=== PATIENT | male | born 1940 | race Caucasian/White ===

== ENCOUNTER 2017-07-26 06:14 | Emergency (ER) | payer MEDICARE ==
--- NOTE | 2017-07-26 06:36 | Emergency Department Record ---
History of Present Illness - General Chief complaint: Nosebleed/epistaxis Stated complaint: EPISTAXIS LEFT NARE Time Seen by Provider: 07/26/17 06:31 Source: Patient Mode of Arrival: Wheelchair Limitations: No limitations - History of Present Illness Initial comments: 77 yo male presents to ED for evaluation of intermittent nose bleeds from the right nare for the past 3 morning, has been able to get the bleeding to stop at home each morning. Patient reports that he takes Coumadin, Plavix, and ASA for his heart. Patient denies injury or trauma to the nose, and denies recent surgery to the area. complaint: Epistaxis Onset/Timin -: Minutes(s) Location: Nose Severity: Moderate Consistency: Intermittent Improves with: Pressure Worsens with: None Context-Epistaxis: Aspirin use, Warfarin use - Related Data Home Medications Medication Instructions Recorded Confirmed Last Taken Albuterol Sulfate [Proventil Hfa] 1 - 2 puff INH .EVERY 4-6 HOURS PRN 07/26/17 07/26/17 Unknown Aspirin 81 mg PO DAILY 07/26/17 07/26/17 Unknown Beclomethasone Dipropionate [Qvar 8.7 gm IH BID 07/26/17 07/26/17 Unknown 40Mcg/100 Actuat Inhaler] Cholecalciferol (Vitamin D3) 1,000 unit PO DAILY 07/26/17 07/26/17 Unknown [Vitamin D3] Hydrocortisone [Proctosol-Hc] 28.35 gm RC ASDIR 07/26/17 07/26/17 Unknown Ketoconazole 15 gm TP ASDIR 07/26/17 07/26/17 Unknown Loratadine [Claritin] 10 mg PO DAILY 07/26/17 07/26/17 Unknown Metoprolol Succinate 50 mg PO DAILY 07/26/17 07/26/17 Unknown Milk Thistle 100 mg PO DAILY 07/26/17 07/26/17 Unknown Omeprazole 20 mg PO DAILY 07/26/17 07/26/17 Unknown Ropinirole HCl [Requip] 0.25 mg PO QPM 07/26/17 07/26/17 Unknown Sertraline HCl [Zoloft] 50 mg PO QHS 07/26/17 07/26/17 Unknown Vitamin B Complex 1 each PO DAILY 07/26/17 07/26/17 Unknown Previous Rx's Medication Instructions Recorded Cephalexin [Keflex] 500 mg PO QID #28 cap 07/26/17 Allergies Allergy/AdvReac Type Severity Reaction Status Date / Time Sulfa (Sulfonamide Allergy HIVES Verified 05/26/14 15:33 Antibiotics) Travel Screening - Travel/Exposure Within Last 30 Days Have you traveled within the last 30 days?: No - Travel/Exposure Within Last Year Have you traveled outside the [place] in the last year?: No - Additonal Travel Details Have you been exposed to anyone with a communicable illness?: No - Travel Symptoms Symptom Screening: None Review of Systems Constitutional: Denies: Chills, Fever, Malaise, Night sweats Eyes: Denies: Eye discharge, Eye pain ENT: Reports: Epistaxis. Denies: Congestion, Ear pain Respiratory: Denies: Cough, Dyspnea Cardiovascular: Denies: Chest pain, Dyspnea on exertion Endocrine: Denies: Fatigue, Heat or cold intolerance Gastrointestinal: Denies: Vomiting Genitourinary: Denies: Incontinence, Retention Skin: Denies: Bruising, Change in color Neurological: Denies: Abnormal gait, Confusion Psychiatric: Denies: Anxiety Hematological/Lymphatic: Reports: Easy bleeding, Easy bruising. Denies: Anemia , Blood Clots Past Medical History - SOCIAL HISTORY Smoking Status: Never smoker Alcohol Use: None Drug Use: None - RESPIRATORY Hx Respiratory Disorders: Yes Hx Pneumonia: Yes - CARDIOVASCULAR Hx Cardio Disorders: Yes Hx Cardiac Cath: Yes Hx Chest Pain: Yes Hx Heart Attack: Yes - NEURO Hx Neuro Disorders: Yes Hx Headaches: Yes - GI Hx GI Disorders: No - Hx Genitourinary Disorders: No - ENDOCRINE Hx Endocrine Disorders: No - MUSCULOSKELETAL Hx Musculoskeletal Disorders: Yes Comment:: Chronic back pain - PSYCH Hx Psych Problems: Yes Hx Anxiety: Yes - HEMATOLOGY/ONCOLOGY Hx Hematology/Oncology Disorders: No Family Medical History Any Significant Family History?: No Hx Heart Disease: Father Physical Exam - General General Appearance: Alert, Oriented x3, Cooperative, Moderate distress Limitations: No limitations - Head Head exam: Atraumatic, Normocephalic, Normal inspection Head exam detail: negative: Abrasion, Contusion, Sheppard's sign, General tenderness, Hematoma, Laceration - Eye Eye exam: Normal appearance. negative: Conjunctival injection, Periorbital swelling, Periorbital tenderness, Scleral icterus - ENT Ear exam: negative: Auricular hematoma, Auricular trauma Nasal Exam: Active bleeding Mouth exam: negative: Drooling, Laceration, Muffled voice, Tongue elevation - Neck Neck exam: Normal inspection. negative: Meningismus, Tenderness - Respiratory Respiratory exam: Normal lung sounds bilaterally. negative: Rales, Respiratory distress, Rhonchi, Stridor - Cardiovascular Cardiovascular Exam: Regular rate, Normal rhythm, Normal heart sounds - GI/Abdominal GI/Abdominal exam: Soft. negative: Rebound, Rigid, Tenderness - Rectal Rectal exam: Deferred - exam: Deferred - Back Back exam: Reports: Normal inspection. Denies: CVA tenderness (R), CVA tenderness (L) - Neurological Neurological exam: Alert, Normal gait, Oriented X3 - Psychiatric Psychiatric exam: Normal affect, Normal mood - Skin Skin exam: Normal color. negative: Abrasion Type of lesion: negative: abrasion Course Vital Signs 07/26/17 07/26/17 06:15 06:24 Pulse Rate 72 Respiratory 20 Rate Blood Pressure 116/81 Pulse Ox 96 - Reevaluation(s) Reevaluation #1: 07/26/17 06:51 TLE soaked cotton balls placed into the nare to stop bleeding, when removed there was no obvious source identified. Hemostatic device was placed into the right nare to prevent re-bleeding with good success. Awaiting laboratory results for INR level. Reevaluation #2: 07/26/17 07:32 Hgb 13.8, INR 1.22. Labs are otherwise grossly unremarkable for an acute process. Patient reassessed, no further bleeding noted. Patient appears stable for discharge at this time. Medical Decision Making - Lab Data Result diagrams: 07/26/17 06:55 Disposition Disposition: Discharge Clinical Impression: Epistaxis Disposition: Home, Self-Care Condition: (2) Stable Instructions: Nosebleed (ED) Additional Instructions: Return to ED if your symptoms worsen or if you have any concerns. Follow-up with Dr. Knight in 3-5 days as directed. Keflex as directed. Prescriptions: Cephalexin [Keflex] 500 mg PO QID #28 cap Referrals: MILAGROS KNIGHT [DOCTOR OF OSTEOPATH] - Forms: Patient Portal Access Time of Disposition: 06:36 Quality - Quality Measures Quality Measures: N/A - Blood Pressure Screening Does Patient Have Any of the Following: Active Dx of HTN Blood Pressure Classification: Pre-Hypertensive BP Reading Systolic Measurement: 116 Diastolic Measurement: 81 Screening for High Blood Pressure: Patient Exclusion, Hx of HTN [G9944]
[2017-07-26] MEDS: TOPICAL LIDOCAINE W/ EPI 5 ML TOP ONE (06:55)
[2017-07-26 07:02] LABS: BASO % 0.5 % (0-6); GRAN % 61.2 % (47-80); HEMATOCRIT 41.3 % (42.0-52.0); HEMOGLOBIN 13.8 gm/dl (14.0-18.0); LYMPH % 24.3 % (16-45); MEAN CELL VOLUME 94.5 fl (81-97); MEAN CORPUSCULAR HGB CONC 33.4 g/dl (32-36); MEAN PLATELET VOLUME 10.9 fl (7.4-10.4); PLATELET COUNT 243 K/uL (130-400); RED BLOOD COUNT 4.37 M/uL (4.40-5.70); RED CELL DISTRIBUTION WIDTH 13.3 % (11.5-14.5)
[2017-07-26 07:05] LABS: MEAN CORPUSCULAR HEMOGLOBIN 31.5 pg (27-33)
[2017-07-26 07:30] LABS: INR 1.22; PROTHROMBIN TIME (PATIENT) 13.2 SECONDS (9.5-12.1)
[2017-07-26] MEDS: ACETAMINOPHEN 500 MG TABLET PO ONE (07:43)
== END 2017-07-26 07:48 | disposition home or self-care (01) ==
LOC: ER 06:14
DX: R04.0 Epistaxis (principal); I25.2 Old myocardial infarction; Z79.01 Long term (current) use of anticoagulants
CPT/HCPCS: 30901; 85025; 85610; 99283; 99284

== ENCOUNTER 2017-08-08 19:28 | Emergency (ER) | payer MEDICARE ==
--- NOTE | 2017-08-08 19:46 | Emergency Department Record ---
History of Present Illness - General Chief complaint: Nosebleed/epistaxis Stated complaint: NOSE BLEED Time Seen by Provider: 08/08/17 19:40 Source: Patient Mode of Arrival: Ambulatory Limitations: No limitations - History of Present Illness Initial comments: 77 yo male returns to ED for re-evaluation of recurrent bleeding from the right nare. Patient underwent packing placement 13 days ago in ED, followed up with his PCP the following day who removed the packing. Patient reports that he followed up with his PCP again today for intermittent bleeding since his packing was removed, had an area of the right nare cauterized. Patient is currently taking Coumadin and Plavix for know heart disease. MD complaint: Epistaxis Onset/Timin -: Hour(s) Location: Nose Severity: Mild Consistency: Intermittent Context-Epistaxis: Aspirin use, Warfarin use, History of similar - Related Data Previous Rx's Medication Instructions Recorded Cephalexin [Keflex] 500 mg PO QID #28 cap 07/26/17 Cephalexin [Keflex] 500 mg PO QID #27 cap 08/08/17 Allergies Allergy/AdvReac Type Severity Reaction Status Date / Time Sulfa (Sulfonamide Allergy HIVES Verified 05/26/14 15:33 Antibiotics) Travel Screening - Travel/Exposure Within Last 30 Days Have you traveled within the last 30 days?: No - Travel Symptoms Symptom Screening: None Review of Systems Constitutional: Denies: Chills, Fever, Malaise, Night sweats Eyes: Denies: Eye discharge, Eye pain ENT: Reports: Epistaxis. Denies: Congestion, Ear pain Respiratory: Denies: Cough, Dyspnea Cardiovascular: Denies: Chest pain, Dyspnea on exertion Endocrine: Denies: Fatigue, Heat or cold intolerance Gastrointestinal: Denies: Abdominal pain, Nausea, Vomiting Genitourinary: Denies: Incontinence, Retention Musculoskeletal: Denies: Arthralgia, Back pain, Gout, Joint swelling Skin: Denies: Bruising, Change in color Neurological: Denies: Abnormal gait, Confusion, Headache Psychiatric: Denies: Anxiety Hematological/Lymphatic: Reports: Easy bleeding, Easy bruising Past Medical History - SOCIAL HISTORY Smoking Status: Never smoker - RESPIRATORY Hx Respiratory Disorders: Yes Hx Pneumonia: Yes - CARDIOVASCULAR Hx Cardio Disorders: Yes Hx Cardiac Cath: Yes Hx Chest Pain: Yes Hx Heart Attack: Yes - NEURO Hx Neuro Disorders: Yes Hx Headaches: Yes - GI Hx GI Disorders: No - Hx Genitourinary Disorders: No - ENDOCRINE Hx Endocrine Disorders: No - MUSCULOSKELETAL Hx Musculoskeletal Disorders: Yes Comment:: Chronic back pain - PSYCH Hx Psych Problems: Yes Hx Anxiety: Yes - HEMATOLOGY/ONCOLOGY Hx Hematology/Oncology Disorders: No Family Medical History Any Significant Family History?: Yes Hx Heart Disease: Father Physical Exam - General General Appearance: Alert, Oriented x3, Cooperative, Moderate distress (active bleeding from the right nare) Limitations: No limitations - Head Head exam: Atraumatic, Normocephalic, Normal inspection Head exam detail: negative: Abrasion, Contusion, Sheppard's sign, General tenderness, Hematoma, Laceration - Eye Eye exam: Normal appearance. negative: Conjunctival injection, Periorbital swelling, Periorbital tenderness, Scleral icterus - ENT Ear exam: negative: Auricular hematoma, Auricular trauma Nasal Exam: Active bleeding, Dried blood. negative: Discharge, Foreign body Mouth exam: negative: Drooling, Laceration, Tongue elevation - Neck Neck exam: Normal inspection. negative: Meningismus, Tenderness - Respiratory Respiratory exam: Normal lung sounds bilaterally. negative: Respiratory distress, Rhonchi, Stridor, Wheezes - Cardiovascular Cardiovascular Exam: Regular rate, Normal rhythm, Normal heart sounds - GI/Abdominal GI/Abdominal exam: Soft. negative: Distended, Rebound, Rigid, Tenderness - Rectal Rectal exam: Deferred - exam: Deferred - Extremities Extremities exam: Normal inspection. negative: Calf tenderness, Pedal edema, Tenderness - Back Back exam: Denies: CVA tenderness (R), CVA tenderness (L) - Neurological Neurological exam: Alert, Normal gait, Oriented X3 - Psychiatric Psychiatric exam: Normal affect, Normal mood - Skin Skin exam: Normal color. negative: Abrasion Type of lesion: negative: abrasion Course Vital Signs 08/08/17 08/08/17 19:32 19:33 Pulse Rate 69 Pulse Rate [ 69 Pulse Ox Probe] Respiratory 16 Rate Blood Pressure 122/72 Blood Pressure 122/72 [Left Arm] Pulse Ox 99 - Reevaluation(s) Reevaluation #1: 08/08/17 19:41 Procedure Note: All clots were removed from the right nare, TLE-soaked cotton balls placed into the nare. Will reassess in 10-15 minutes. Reevaluation #2: 08/08/17 19:47 Labs reviewed from earlier today, INR 1.03, Hgb 14.3. Reevaluation #3: 08/08/17 20:03 TLE cotton balls removed, anterior rhinorocket was placed into the right nare without complications. Will monitor for re-bleeding. Reevaluation #4: 08/08/17 20:25 Patient reassessed, no further bleeding noted. Patient reports that he is ready for discharge at this time. Disposition Disposition: Discharge Clinical Impression: Epistaxis Disposition: Home, Self-Care Condition: (2) Stable Instructions: Nosebleed (ED) Additional Instructions: Return to ED if your symptoms worsen or if you have any concerns. Follow-up with Dr. Knight in 3-5 days as directed. Keflex as directed. Prescriptions: Cephalexin [Keflex] 500 mg PO QID #27 cap Referrals: MILAGROS KNIGHT [DOCTOR OF OSTEOPATH] - Forms: Patient Portal Access Time of Disposition: 19:49 Quality - Quality Measures Quality Measures: N/A - Blood Pressure Screening Does Patient Have Any of the Following: Active Dx of HTN Blood Pressure Classification: Pre-Hypertensive BP Reading Systolic Measurement: 122 Diastolic Measurement: 72 Screening for High Blood Pressure: Patient Exclusion, Hx of HTN [G9744]
[2017-08-08] MEDS ORDERED: CEPHALEXIN 500 MG CAPSULE PO STA (20:05)
== END 2017-08-08 20:32 | disposition home or self-care (01) ==
LOC: ER 19:28
DX: R04.0 Epistaxis (principal); Z51.81 Encounter for therapeutic drug level monitoring; Z79.899 Other long term (current) drug therapy; Z12.5 Encounter for screening for malignant neoplasm of prostate; Z79.01 Long term (current) use of anticoagulants; I25.2 Old myocardial infarction
CPT/HCPCS: 30901 ×2; 99283 ×2; 84550; 84450; 84460; 85025; 85610; 82306; 80048; 81003; 80061; G0103

== ENCOUNTER 2017-08-12 09:57 | Emergency (ER) | payer MEDICARE ==
--- NOTE | 2017-08-12 10:21 | Emergency Department Record ---
History of Present Illness - General Chief complaint: ENT Stated complaint: BLOODY NOSE Time Seen by Provider: 08/12/17 09:58 Mode of Arrival: Ambulatory - History of Present Illness Initial comments: here for packing removal and he said he had some bleeding last night. No active bleeding now and packing came out without any problems some water placed on the packing to help it come out easier. Onset/Timin -: Month(s) Location: Nose Improves with: None Worsens with: None Context-Epistaxis: Other - Related Data Previous Rx's Medication Instructions Recorded Cephalexin [Keflex] 500 mg PO QID #28 cap 07/26/17 Cephalexin [Keflex] 500 mg PO QID #27 cap 08/08/17 Allergies Allergy/AdvReac Type Severity Reaction Status Date / Time Sulfa (Sulfonamide Allergy HIVES Verified 08/12/17 10:12 Antibiotics) Travel Screening - Travel/Exposure Within Last 30 Days Have you traveled within the last 30 days?: No - Travel/Exposure Within Last Year Have you traveled outside the [place] in the last year?: No - Additonal Travel Details Have you been exposed to anyone with a communicable illness?: No - Travel Symptoms Symptom Screening: None Review of Systems Reviewed: No additional complaints except as noted below Constitutional: Reports: As per HPI. Denies: Chills, Fever, Malaise, Night sweats, Weakness, Weight change Eyes: Reports: As per HPI. Denies: Eye discharge, Eye pain, Photophobia, Vision change ENT: Reports: As per HPI. Denies: Congestion, Dental pain, Ear pain, Epistaxis , Hearing loss, Throat pain Respiratory: Reports: As per HPI. Denies: Cough, Dyspnea, Hemoptysis, Stridor, Wheezes Cardiovascular: Reports: As per HPI. Denies: Arrhythmia, Chest pain, Dyspnea on exertion, Edema, Murmurs, Orthopnea, Palpitations, Paroxysmal nocturnal dyspnea, Rheumatic Fever, Syncope Endocrine: Reports: As per HPI. Denies: Fatigue, Heat or cold intolerance, Polydipsia, Polyuria Gastrointestinal: Reports: As per HPI. Denies: Abdominal pain, Constipation, Diarrhea, Hematemesis, Hematochezia, Melena, Nausea, Vomiting Genitourinary: Reports: As per HPI. Denies: Dysuria, Frequency, Hematuria, Incontinence, Retention, Testicular pain, Testicular mass, Urgency Musculoskeletal: Reports: As per HPI. Denies: Arthralgia, Back pain, Gout, Joint swelling, Myalgia, Neck pain Skin: Reports: As per HPI. Denies: Bruising, Change in color, Change in hair/ nails, Lesions, Pruritus, Rash Neurological: Reports: As per HPI. Denies: Abnormal gait, Confusion, Headache, Numbness, Paresthesias, Seizure, Tingling, Tremors, Vertigo, Weakness Psychiatric: Reports: As per HPI. Denies: Anxiety, Auditory hallucinations, Depression, Homicidal thoughts, Suicidal thoughts, Visual hallucinations Hematological/Lymphatic: Reports: As per HPI. Denies: Anemia, Blood Clots, Easy bleeding, Easy bruising, Swollen glands Past Medical History - SOCIAL HISTORY Smoking Status: Never smoker Alcohol Use: None Drug Use: None - RESPIRATORY Hx Respiratory Disorders: Yes Hx Pneumonia: Yes - CARDIOVASCULAR Hx Cardio Disorders: Yes Hx Cardiac Cath: Yes Hx Chest Pain: Yes Hx Heart Attack: Yes - NEURO Hx Neuro Disorders: Yes Hx Headaches: Yes - GI Hx GI Disorders: No - Hx Genitourinary Disorders: No - ENDOCRINE Hx Endocrine Disorders: No - MUSCULOSKELETAL Hx Musculoskeletal Disorders: Yes Comment:: Chronic back pain - PSYCH Hx Psych Problems: Yes Hx Anxiety: Yes - HEMATOLOGY/ONCOLOGY Hx Hematology/Oncology Disorders: No Family Medical History Any Significant Family History?: No Hx Heart Disease: Father Physical Exam - General General Appearance: Alert, Oriented x3, Cooperative, No acute distress - Head Head exam: Normal inspection - Eye Eye exam: Normal appearance, PERRL Pupils: Normal accommodation - ENT ENT exam: Normal exam, Mucous membranes moist, Normal external ear exam, Normal orophraynx, TM's normal bilaterally Ear exam: Normal external inspection. negative: External canal tenderness Nasal Exam: Normal inspection. negative: Discharge, Sinus tenderness Mouth exam: Normal external inspection, Tongue normal Teeth exam: Normal inspection. negative: Dental caries Throat exam: Normal inspection. negative: Tonsillar erythema, Tonsillar exudate - Neck Neck exam: Normal inspection, Full ROM. negative: Tenderness - Respiratory Respiratory exam: Normal lung sounds bilaterally. negative: Respiratory distress - Cardiovascular Cardiovascular Exam: Regular rate, Normal rhythm, Normal heart sounds - GI/Abdominal GI/Abdominal exam: Soft, Normal bowel sounds. negative: Tenderness - Rectal Rectal exam: Deferred - exam: Deferred - Extremities Extremities exam: Normal inspection, Full ROM, Normal capillary refill. negative: Tenderness - Back Back exam: Reports: Normal inspection, Full ROM. Denies: Muscle spasm, Rash noted, Tenderness - Neurological Neurological exam: Alert, Normal gait, Oriented X3, Reflexes normal - Psychiatric Psychiatric exam: Normal affect, Normal mood - Skin Skin exam: Dry, Intact, Normal color, Warm Course Vital Signs 08/12/17 10:03 Temperature 97.5 F L Pulse Rate 73 Respiratory 18 Rate Blood Pressure 110/58 Pulse Ox 97 Disposition Clinical Impression: Epistaxis, Change or removal of wound packing Disposition: Home, Self-Care Condition: (1) Good Instructions: Nosebleed (ED) Additional Instructions: follow up with Dr. Hsieh next week as scheduled Time of Disposition: 10:20 Quality - Quality Measures Quality Measures: N/A - Blood Pressure Screening Does Patient Have Any of the Following: No, Active Dx of HTN Blood Pressure Classification: Normal BP Reading Systolic Measurement: 110 Diastolic Measurement: 58 Screening for High Blood Pressure: Patient Exclusion, Hx of HTN [G9744]
== END 2017-08-12 10:53 | disposition home or self-care (01) ==
LOC: ER 09:57
DX: R04.0 Epistaxis (principal); I25.2 Old myocardial infarction
CPT/HCPCS: 99282

== ENCOUNTER 2019-03-23 06:31 | Emergency (ER) | payer MEDICARE ==
[2019-03-23] MEDS ORDERED: ASPIRIN 81 MG CHEWABLE TABLET PO ONE (06:53)
[2019-03-23] MEDS ORDERED: NITROGLYCERIN 0.4MG SL TABLET #25 BTL SL PRN (07:02)
[2019-03-23 07:06] LABS: ABSOLUTE NEUTROPHIL COUNT 4.13; BASO % 0.3 % (0-6); EOS % 2.8 % (0-6); GRAN % 58.6 % (47-80); HEMATOCRIT 44.9 % (42.0-52.0); HEMOGLOBIN 14.6 gm/dl (14.0-18.0); LYMPH % 26.7 % (16-45); MEAN CELL VOLUME 97.2 fl (81-97); MEAN CORPUSCULAR HEMOGLOBIN 31.6 pg (27-33); MEAN CORPUSCULAR HGB CONC 32.5 g/dl (32-36); MEAN PLATELET VOLUME 10.9 fl (7.4-10.4); MONO % 11.6 % (0-9); PLATELET COUNT 244 K/uL (130-400); RED BLOOD COUNT 4.62 M/uL (4.40-5.70); RED CELL DISTRIBUTION WIDTH 12.8 % (11.5-14.5); WHITE BLOOD COUNT W/O DIFF 7.1 K/uL (4.2-12.2)
--- NOTE | 2019-03-23 07:08 | Emergency Department Record ---
History of Present Illness - General Chief Complaint: Chest Pain Stated Complaint: CHEST PAIN Time Seen by Provider: 03/23/19 06:52 Source: Patient, RN notes reviewed Mode of Arrival: Ambulatory - History of Present Illness Initial Comments: 4am left chest pain and some radiation into his left arm and he was diaphorectic and came into the ED. [facility] yesterday to help with angina and he just started this treatment through Dr Norman office in [place]. Patient took nitro times two at 5:30 am today at home. Damaso describes the pain as sharp stabbing pain in the anterior axillary line. Patient was given a sublinquinal nitroglycerin and it caused his BP to go down to 70/50 and given IVNS 500 ml and his pressure normalized and he developed a headache from the nitro and given IV ofirmed and the headache and chest pain resolved. He didn't think the vu helped his chest pain. Patient said he has been working on a 30 pound sign and has a hard time lifting the sign MD Complaint: Chest pain Onset/Timin -: Hour(s) Onset: Awoke with symptoms, During rest Pain Location: Left chest Pain Radiation: LUE Severity scale (1-10): 9 Quality: Aching Consistency: Constant, Getting worse Improves With: Nothing Worsens With: Nothing Context: Other Anginal Symptoms: Diaphoresis, Nausea Treatments Prior to Arrival: Nitroglycerin Treatment Prior to Arrival Comment:: 0530 - Related Data Home Medications Medication Instructions Recorded Confirmed Last Taken [place]-3 Acid Ethyl Esters [Lovaza] 1 gm PO DAILY 03/23/19 03/23/19 03/22/19 Allergies Allergy/AdvReac Type Severity Reaction Status Date / Time Sulfa (Sulfonamide Allergy HIVES Verified 08/12/17 10:12 Antibiotics) Travel Screening - Travel/Exposure Within Last 30 Days Have you traveled within the last 30 days?: No - Travel Symptoms Symptom Screening: None Review of Systems Reviewed: No additional complaints except as noted below Constitutional: Reports: As per HPI. Denies: Chills, Fever, Malaise, Night sweats, Weakness, Weight change Eyes: Reports: As per HPI. Denies: Eye discharge, Eye pain, Photophobia, Vision change ENT: Reports: As per HPI. Denies: Congestion, Dental pain, Ear pain, Epistaxis, Hearing loss, Throat pain Respiratory: Reports: As per HPI. Denies: Cough, Dyspnea, Hemoptysis, Stridor, Wheezes Cardiovascular: Reports: As per HPI, Chest pain. Denies: Arrhythmia, Dyspnea on exertion, Edema, Murmurs, Orthopnea, Palpitations, Paroxysmal nocturnal dyspnea, Rheumatic Fever, Syncope Endocrine: Reports: As per HPI. Denies: Fatigue, Heat or cold intolerance, Polydipsia, Polyuria Gastrointestinal: Reports: As per HPI. Denies: Abdominal pain, Constipation, Diarrhea, Hematemesis, Hematochezia, Melena, Nausea, Vomiting Genitourinary: Reports: As per HPI. Denies: Dysuria, Frequency, Hematuria, Incontinence, Retention, Testicular pain, Testicular mass, Urgency Musculoskeletal: Reports: As per HPI. Denies: Arthralgia, Back pain, Gout, Joint swelling, Myalgia, Neck pain Skin: Reports: As per HPI. Denies: Bruising, Change in color, Change in hair/nails, Lesions, Pruritus, Rash Neurological: Reports: As per HPI. Denies: Abnormal gait, Confusion, Headache, Numbness, Paresthesias, Seizure, Tingling, Tremors, Vertigo, Weakness Psychiatric: Reports: As per HPI. Denies: Anxiety, Auditory hallucinations, Depression, Homicidal thoughts, Suicidal thoughts, Visual hallucinations Hematological/Lymphatic: Reports: As per HPI. Denies: Anemia, Blood Clots, Easy bleeding, Easy bruising, Swollen glands Past Medical History - SOCIAL HISTORY Smoking Status: Never smoker Alcohol Use: None Drug Use: None - RESPIRATORY Hx Respiratory Disorders: Yes Hx Pneumonia: Yes - CARDIOVASCULAR Hx Cardio Disorders: Yes Hx Cardiac Cath: Yes Hx Chest Pain: Yes Hx Heart Attack: Yes - NEURO Hx Neuro Disorders: Yes Hx Headaches: Yes - GI Hx GI Disorders: No - Hx Genitourinary Disorders: No - ENDOCRINE Hx Endocrine Disorders: No - MUSCULOSKELETAL Hx Musculoskeletal Disorders: Yes Comment:: Chronic back pain - PSYCH Hx Psych Problems: Yes Hx Anxiety: Yes - HEMATOLOGY/ONCOLOGY Hx Hematology/Oncology Disorders: No Family Medical History Any Significant Family History?: Yes Hx Heart Disease: Father Physical Exam - General General Appearance: Alert, Oriented x3, Cooperative, No acute distress - Head Head exam: Normal inspection - Eye Eye exam: Normal appearance, PERRL Pupils: Normal accommodation - ENT ENT exam: Normal exam, Mucous membranes moist, Normal external ear exam, Normal orophraynx, TM's normal bilaterally Ear exam: Normal external inspection. negative: External canal tenderness Nasal Exam: Normal inspection. negative: Discharge, Sinus tenderness Mouth exam: Normal external inspection, Tongue normal Teeth exam: Normal inspection. negative: Dental caries Throat exam: Normal inspection. negative: Tonsillar erythema, Tonsillar exudate - Neck Neck exam: Normal inspection, Full ROM. negative: Tenderness - Respiratory Respiratory exam: Normal lung sounds bilaterally. negative: Respiratory distress - Cardiovascular Cardiovascular Exam: Regular rate, Normal rhythm, Normal heart sounds - GI/Abdominal GI/Abdominal exam: Soft, Normal bowel sounds. negative: Tenderness - Rectal Rectal exam: Deferred - exam: Deferred - Extremities Extremities exam: Normal inspection, Full ROM, Normal capillary refill. negative: Tenderness - Back Back exam: Reports: Normal inspection, Full ROM. Denies: Muscle spasm, Rash noted, Tenderness - Neurological Neurological exam: Alert, Normal gait, Oriented X3, Reflexes normal - Psychiatric Psychiatric exam: Normal affect, Normal mood - Skin Skin exam: Dry, Intact, Normal color, Warm Course Vital Signs 03/23/19 06:34 Temperature 97.5 F L Pulse Rate [ 67 Pulse Ox Probe] Respiratory 22 Rate Blood Pressure 111/78 [Left Arm] Pulse Ox 95 - Reevaluation(s) Reevaluation #1: patient is feeling better and without pain. 03/23/19 08:08 Reevaluation #2: second set of cardiac enzymes negative 03/23/19 09:20 Medical Decision Making - Data Complexity MDM Data: Labs Ordered and/or Reviewed (trop I negative , BNP elevated , ), X- Ray Ordered and/or Reviewed (chest xray no acute process), EKG Ordered and/or Reviewed (LBBB with PVC) - Lab Data Result diagrams: 03/23/19 06:50 03/23/19 06:50 Disposition Clinical Impression: Stable angina, Anterior chest wall pain Disposition: Home, Self-Care Condition: (1) Good Instructions: Angina (ED), Costochondritis (ED) Additional Instructions: tylenol 2 pills three times a day Keep [facility] appointment on monday follow up with Dr Hsieh as scheduled Forms: Patient Portal Access Time of Disposition: 09:21 Quality - Quality Measures Quality Measures: N/A - Blood Pressure Screening Does Patient Have Any of the Following: No Blood Pressure Classification: Normal BP Reading Systolic Measurement: 103 Diastolic Measurement: 64 Screening for High Blood Pressure: < Normal BP, F/U Not Required > [[id number]]
[2019-03-23 07:17] LABS: BLOOD UREA NITROGEN 17 mg/dL (8-23); CREATININE 0.9 mg/dL (0.7-1.2); EST GLOMERULAR FILTRATION RATE > 60 mL/min
[2019-03-23 07:18] LABS: TOTAL PROTEIN 6.6 g/dL (6.6-8.7)
[2019-03-23 07:20] LABS: GLUCOSE,RANDOM 103 mg/dL (74-109)
[2019-03-23] MEDS ORDERED: ACETAMINOPHEN 1,000 MG/100 ML BTL IVPB ONE (07:22)
[2019-03-23 07:23] LABS: ALB/GLOB RATIO 1.8 (1.1-1.8); ALBUMIN 4.2 g/dL (4.0-5.0); ALKALINE PHOSPHATASE 83 U/L (40-129); ALT/SGPT 19 U/L (<41); AST/SGOT 21 U/L (10.0-50.0)
[2019-03-23 07:32] LABS: INR 1.1; PARTIAL THROMBOPLASTIN TIME 24.7 SECONDS (24.5-39.1); PROTHROMBIN TIME (PATIENT) 11.1 SECONDS (9.5-12.1)
[2019-03-23 07:33] LABS: THYROID STIMULATING HORMONE 2.48 uIU/mL (0.270-4.20)
--- NOTE | 2019-03-25 08:58 | RADIOLOGY REPORT ---
EXAM: CHEST, TWO VIEWS HISTORY: CHEST PAIN. TECHNIQUE: Two views of the chest were obtained. Comparison: 12/31/15. FINDINGS: Previous median sternotomy and CABG. The cardiomediastinal silhouette is stable. The lungs are hypertrophic with emphysematous change/COPD. Similar elevation of the anterior right hemidiaphragm. No focal consolidation or pleural effusion. IMPRESSION: STABLE CHEST. COPD. JOB NUMBER: [id number] MTDD
== END 2019-03-23 09:36 | disposition home or self-care (01) ==
LOC: ER 06:31
DX: I20.8 Other forms of angina pectoris (principal); R07.89 Other chest pain; R11.0 Nausea; R51 Headache; R61 Generalized hyperhidrosis; J44.9 Chronic obstructive pulmonary disease, unspecified; I25.2 Old myocardial infarction
CPT/HCPCS: 71046; 80053; 83880; 84443; 84484; 85025; 85379; 85610; 85730; 93005; 93010; 99284